=== PATIENT | female | born 1965 | race African-American/Black ===

== ENCOUNTER 2017-08-09 12:54 | Emergency (ER) | payer MEDICARE, MEDICAID ==
[~2017-08-09] VITALS: Ht 165.1 cm; Wt 104.5 kg
[2017-08-09 13:18] VITALS: BP 121/94
== END 2017-08-09 19:29 | disposition left against medical advice (07) ==
LOC: ER 13:45
DX: Z53.21 Procedure and treatment not carried out due to patient leaving prior to being seen by health care provider (principal)

== ENCOUNTER 2018-06-05 05:37 | Emergency (ER) | payer MEDICARE, MEDICAID ==
[~2018-06-05] VITALS: Ht 165.1 cm; Wt 109.0 kg
[2018-06-05] MEDS ORDERED: PROCHLORPERAZINE 10MG/2ML VIAL IV PRN (07:15)
[2018-06-05] MEDS ORDERED: DIPHENHYDRAMINE 50MG/ML VIAL IV ONE (07:15)
[2018-06-05] MEDS ORDERED: KETOROLAC 15MG/ML VIAL IV ONE (07:15)
[2018-06-05] MEDS ORDERED: SODIUM CHLORIDE 0.9% 1,000 ML IV ONE (07:16)
[2018-06-05 08:14] LABS: CLARITY URINE CLEAR (CLEAR); COLOR URINE YELLOW (YELLOW); KETONES URINE NEGATIVE (NEGATIVE); LEUKOCYTE ESTERASE URINE NEGATIVE (NEGATIVE); NITRITE URINE NEGATIVE (NEGATIVE); OCCULT BLOOD URINE NEGATIVE (NEGATIVE); PH URINE 6.5 (4.5-8.0); PROTEIN URINE NEGATIVE (NEGATIVE); SPECIFIC GRAVITY URINE 1.006 (1.005-1.030); UROBILINOGEN URINE 0.2 E.U./dL (0.2-1.0)
[2018-06-05 11:06] VITALS: BP 128/74
== END 2018-06-05 11:07 | disposition home or self-care (01) ==
LOC: ER 06:01
DX: R51 Headache (principal); F32.9 Major depressive disorder, single episode, unspecified; Z90.710 Acquired absence of both cervix and uterus
CPT/HCPCS: 70450; 71045; 81003; 81025; 96374; 96375; 99284; J1200; J1885; J7030

== ENCOUNTER 2018-07-04 16:24 | Emergency (ER) | payer BC ==
[~2018-07-04] VITALS: Ht 165.1 cm; Wt 106.0 kg
[2018-07-05] MEDS ORDERED: AZITHROMYCIN 500 MG TABLET PO ONE (01:00)
[2018-07-05] MEDS ORDERED: CEFTRIAXONE SODIUM 250 MG/VIAL IM ONE (01:00)
[2018-07-05 01:03] LABS: CLARITY URINE CLEAR (CLEAR); COLOR URINE YELLOW (YELLOW); KETONES URINE TRACE (NEGATIVE); LEUKOCYTE ESTERASE URINE NEGATIVE (NEGATIVE); NITRITE URINE NEGATIVE (NEGATIVE); OCCULT BLOOD URINE NEGATIVE (NEGATIVE); PROTEIN URINE NEGATIVE (NEGATIVE); SPECIFIC GRAVITY URINE 1.028 (1.005-1.030)
[2018-07-05 01:50] VITALS: BP 138/82
[2018-07-06 09:06] LABS: HIV SCREEN 4G Non Reactive (Non Reactive)
[2018-07-07 04:13] LABS: N GONORRHOEAE NAA Negative (Negative)
== END 2018-07-05 01:52 | disposition home or self-care (01) ==
LOC: ER 16:24
DX: R30.0 Dysuria (principal); N89.8 Other specified noninflammatory disorders of vagina; R10.31 Right lower quadrant pain
CPT/HCPCS: 81003; 81025; 86592; 87210; 87389; 87591; 96372; 99283; J0696

== ENCOUNTER 2022-11-18 01:13 | Emergency (ER) | payer BC ==
[~2022-11-18] VITALS: Ht 165.1 cm; Wt 118.6 kg
[2022-11-18 01:28] VITALS: BP 151/91
[2022-11-18 02:05] LABS: LYMPHOCYTES % 29.9 % (20.0-50.0); MEAN PLATELET VOLUME 8.4 fl (7.4-10.4)
[2022-11-18 02:09] LABS: CHLORIDE 107 mEq/L (98-107)
[2022-11-18 02:31] LABS: BASOPHILS % 0.4 % (0.0-2.0); EOSINOPHILS % 1.8 % (0.0-5.0); HEMATOCRIT. 39.4 % (36.0-48.0); HEMOGLOBIN. 13.1 g/dL (12.0-16.0); MONOCYTES % 8.4 % (2.0-8.0); NEUTROPHILS % 59.5 % (40.0-76.0); PLATELET 333 x1000/uL (130-400); RED BLOOD CELL COUNT 4.86 mill/uL (4.2-5.4); RED CELL DISTRIBUTION WIDTH 15.7 % (11.6-14.6)
[2022-11-18] MEDS ORDERED: [UNRECOGNIZED DRUG - CODE] TP (03:24)
== END 2022-11-18 03:38 | disposition home or self-care (01) ==
LOC: ER 01:13
DX: R07.89 Other chest pain (principal); R60.0 Localized edema; F31.9 Bipolar disorder, unspecified; Z90.710 Acquired absence of both cervix and uterus
CPT/HCPCS: 36415; 71045; 80053; 84484; 85025; 93005; 99285